=== PATIENT | male | born 1995 | race Two or more races ===

== ENCOUNTER 2017-05-01 16:12 | Emergency (ER) | payer OTHER ==
[~2017-05-01] VITALS: Ht 177.8 cm; Wt 104.8 kg
[2017-05-01] MEDS ORDERED: SILVER SULFADIAZINE 1% CREAM 50 GM TP ONE (17:15)
--- NOTE | 2017-05-01 17:17 | NUR ---
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
[2017-05-01] MEDS ORDERED: diphenhydrAMINE 50 MG/1 ML VIAL IM ONE (17:30)
[2017-05-01] MEDS ORDERED: HYDROMORPHONE 1 MG/1 ML DISP.SYRIN IM ONE (17:30)
[2017-05-01] MEDS ORDERED: SILVER SULFADIAZINE 1% CREAM 25 GM TUBE TP ONE (17:31)
[2017-05-01] MEDS ORDERED: HYDROMORPHONE 4 MG/1 ML DISP.SYRIN ONE (17:52)
[2017-05-01] MEDS ORDERED: diphenhydrAMINE 50 MG/1 ML VIAL ONE (17:52)
[2017-05-01 18:03] VITALS: BP 128/60
--- NOTE | 2017-05-01 18:05 | NUR ---
pt d/c home with family after care reviewed understood left er alert, oriented x 4 ambulatory with steady gait.
== END 2017-05-01 18:07 | disposition home or self-care (01) ==
LOC: ER 16:13
DX: T22.312A Burn of third degree of left forearm, initial encounter (principal); X10.2XXA Contact with fats and cooking oils, initial encounter; Y93.89 Activity, other specified; Y92.89 Other specified places as the place of occurrence of the external cause; Y99.8 Other external cause status
CPT/HCPCS: 16020; A4663; J1170; J1200

== ENCOUNTER 2017-05-06 11:15 | Emergency (ER) | payer OTHER ==
[~2017-05-06] VITALS: Ht 177.8 cm; Wt 104.3 kg
[2017-05-06] MEDS ORDERED: NORCO PO (11:19)
[2017-05-06] MEDS ORDERED: SILVER SULFADIAZINE 1% CREAM 50 GM TP ONE (11:30)
--- NOTE | 2017-05-06 11:38 | NUR ---
left forearm x3 wounds treated with silveden and non-adhessive dressinf followed by kelvin per md order.
[2017-05-06] MEDS ORDERED: SILVER SULFADIAZINE 1% CREAM 25 GM TUBE TP ONE (11:45)
== END 2017-05-06 11:40 | disposition home or self-care (01) ==
LOC: ER 11:15
DX: T22.012A Burn of unspecified degree of left forearm, initial encounter (principal); X19.XXXA Contact with other heat and hot substances, initial encounter; Y93.G3 Activity, cooking and baking; Y92.89 Other specified places as the place of occurrence of the external cause; Y99.8 Other external cause status
CPT/HCPCS: 16000; 99284; A4663